=== PATIENT | female | born 1945 | race Caucasian/White ===

== ENCOUNTER → 2022-02-16 11:20 | Outpatient (CLI) | payer MEDICARE, OTHER, SELFPAY ==
--- NOTE | 2022-02-16 11:23 | DI.RAD.S_ITS ---
PROCEDURE: XR KNEE RT 3V INDICATIONS: Right knee OA TECHNIQUE: And 3 views of the knee were acquired. COMPARISON: None. FINDINGS: Bones: No fractures or dislocations. No suspicious bony lesions. There is a moderate to severe tricompartment osteoarthritic type degenerative change present with the medial compartment most severely affected. Soft tissues: A small knee joint effusion is present. No suspicious soft tissue calcifications. IMPRESSION: 1. No evidence for acute osseous abnormality involving the right knee. 2. Moderate to severe tricompartmental osteoarthritic degenerative change with the medial compartment most severely affected. 3. Small right knee joint effusion. Dictated by: Slade Escoto M.D. on 02/16/2022 at 12:40 Approved by: Slade Escoto M.D. on 02/16/2022 at 12:41
== END ==
PROVIDERS: PCP Family Medicine; Referring Provider Anesthesiology; Visit Provider Anesthesiology
DX: M17.11 Unilateral primary osteoarthritis, right knee (principal); M25.551 Pain in right hip; M25.552 Pain in left hip; G58.8 Other specified mononeuropathies; G57.11 Meralgia paresthetica, right lower limb; M25.461 Effusion, right knee
CPT/HCPCS: 73562; 99214

== ENCOUNTER 2022-03-19 12:22 | Outpatient (CLI) | payer MEDICARE, OTHER, SELFPAY ==
--- NOTE | 2022-03-19 12:23 | DI.RAD.S_ITS ---
PROCEDURE: PAIN PERIPHERAL NRV BLK OTHER INDICATIONS: SACROILIAC DISORDER COMPARISON: None. FINDINGS: Fluoroscopic spot filming was performed to verify placement of needles. Appropriate location(s) of the needle tip(s) was confirmed by injection of iodinated contrast. IMPRESSION: Fluoroscopic guidance provided. Dictated by: Gonsalo Clark M.D. on 03/19/2022 at 16:02 Approved by: Gonsalo Clark M.D. on 03/19/2022 at 16:09
[2022-03-19 12:40] VITALS: BP 145/73; PULSE 77; RESP 16; TEMP 36.4; O2SAT 97
[2022-03-19 13:12] VITALS: BP 178/110; PULSE 77; RESP 15; O2SAT 98
[2022-03-19] MEDS: IOPAMIDOL 15 ML VIAL 3 ML INJ (13:13)
[2022-03-19] MEDS: BUPIVACAINE 0.5% (PF) 30 ML VIAL 5 ML INJ (13:13)
[2022-03-19] MEDS: methylPREDNISolone acetate 80 MG/ML VIAL INJ (13:14)
[2022-03-19 13:17] VITALS: BP 160/96; PULSE 73; RESP 19; O2SAT 99
[2022-03-19 13:22] VITALS: BP 167/95; PULSE 74; RESP 18; O2SAT 99
--- NOTE | 2022-03-19 13:28 | P.PCN_ITS ---
Date/Time/Diagnoses Date of procedure: 03/19/22 Time of procedure: 13:29 Pre-procedure diagnosis: Cluneal neuralgia Post-procedure diagnosis: same Procedure Notes Procedure: Bilateral Cluneal Nerve Blocks Indications: Dgamar is referred by Dr. Griggs for treatment of cluneal neuralgia with bilateral low back and buttock pain. Physician: Bridger Elkins Total Fluoroscopy time (seconds): 13 Total sedation minutes: 0 Procedure in detail & Post-procedure care: Bilateral Cluneal Nerve Injection Chief Complaint: Low back and bilateral buttock pain Interval changes in history/medications/system review: Unchanged since last visit Allergies: Reviewed Focused Examination: Ax3 Mood and affect are normal Vital Signs: VSS ASA: 2 Consent: Following review of allergies and potential side effects/complications, including, but not necessarily limited to, infection, allergic reaction, local tissue breakdown, stroke, temporary or permanent nerve injury, paralysis, and possible , the patient indicated that they understood and agreed to proceed.? An informed consent document was signed by the patient, witnessed by a nurse and placed in the patient's chart.? Additionally, other treatment options including medications and physical therapy were reviewed with the patient. All questions were answered. Site was then marked. Position: Prone Monitoring: NIBP, Pulse oximetry, 3 lead EKG Needle used: 25 gauge, 3.5 inch spinal needle x3 Contrast: Isovue 300-M 3mL Injectate: Depomedrol 40mg with 2 mL 0.5% Bupivacaine per side (total 80 mg depo and 4 mL bupivacaine) Technique: The skin was prepped with chloraprep and then draped in a sterile fashion. Time out was performed as per protocol. Oxygen applied via NC. Midline of the spine was identified using fluoroscopy. The skin was measured 8 cm from midline and sterile eunice placed on the skin delineating the superior aspect of the iliac crest on the right. Two vincent were subsequently made 2 cm medial and 2 cm lateral for a total of 3 target sites. Skin and subcutaneous structures of the needle entry sites were then infiltrated with 5 mL of lidocaine 1%. Under AP and contralateral oblique control, the needle was guided to the superior aspect of the iliac crest in the 3 locations. Contrast was injected and the spread was consistent with appropriate needle location. There was no evidence for intravascular uptake. After negative aspiration, the above-mentioned injectate was then slowly administered and the needles withdrawn. The patient expressed no unusual discomfort or paresthesias during needle positioning or injection. This process was then repeated for the left side. EBL: less than 1 ml Complications: None Post Procedure: Patient was taken to the recovery and monitored. The patient was provided a Pain Log to continue to record the patient's response to the target- specific procedure prior to the patient's follow-up visit with the referring physician. Patient was stable upon discharge. Detailed post procedure ins tructions were provided. Patient was asked to call in the event of worsening pain, fever, weakness, numbness or bladder/bowel incontinence.
[2022-03-19 13:32] VITALS: BP 165/73; PULSE 69; RESP 18; O2SAT 99
== END 2022-03-19 13:35 | disposition home or self-care (01) ==
LOC: RAD 12:23
PROVIDERS: PCP Family Medicine; Referring Provider Anesthesiology; Visit Provider Anesthesiology
DX: G58.8 Other specified mononeuropathies (principal)
CPT/HCPCS: 64450; J1030; J1040

== ENCOUNTER → 2022-06-03 13:31 | Outpatient (CLI) | payer MEDICARE, OTHER, SELFPAY ==
--- NOTE | 2022-06-03 13:32 | DI.MRI.S_ITS ---
PROCEDURE: MR LUMBAR SPINE WO CON INDICATIONS: right lumbar radiculopathy TECHNIQUE: Noncontrast sagittal T1 spin echo and T2 fast echo, sagittal STIR, and T2 fast spin echo through the lumbar spine. In cases with scoliosis, additional coronal T2 fast spin echo may be performed. COMPARISON: None. FINDINGS: Image quality: Excellent. Alignment and Curvature: There is normal bony alignment. Bone Marrow: Marrow is of normal overall signal. No acute vertebral body compression fractures. Spinal Cord: Conus medullaris terminates at the L1-2 level. Visualized cord demonstrates normal signal and size. Paraspinous Soft Tissues: No paravertebral masses. T12-L1: Severe disc height loss and broad-based disc bulge. L1-L2: Severe disc height loss with asymmetric disc bulge on the left. Mild ligamentum flavum hypertrophy. Moderate facet arthrosis. Moderate spinal canal narrowing. L2-L3: Broad-based disc bulge. Bilateral facet arthrosis. Mild left neural foraminal narrowing. Mild spinal canal narrowing. L3-L4: Broad-based disc bulge. Ligamentum flavum hypertrophy. Facet arthrosis. Mild bilateral neural foraminal narrowing. L4-L5: Severe disc height loss. Broad-based disc bulge. Bilateral facet arthrosis. Mild right neural foraminal narrowing. L5-S1: Broad-based disc bulge. Mild facet arthrosis. IMPRESSION: Moderate to severe degenerative disc disease at all levels. Of note, there is moderate spinal canal narrowing at L1-2, with mild changes listed above. Dictated by: George Snell M.D. on 06/03/2022 at 15:27 Approved by: George Snell M.D. on 06/03/2022 at 15:33
== END ==
PROVIDERS: PCP Family Medicine; Referring Provider Anesthesiology; Visit Provider Anesthesiology
DX: M51.16 Intervertebral disc disorders with radiculopathy, lumbar region (principal); M51.17 Intervertebral disc disorders with radiculopathy, lumbosacral region; M48.061 Spinal stenosis, lumbar region without neurogenic claudication
CPT/HCPCS: 72148

== ENCOUNTER → 2022-11-22 10:56 | Outpatient (CLI) | payer MEDICARE, OTHER, SELFPAY ==
--- NOTE | 2022-11-22 10:57 | DI.MRI.S_ITS ---
PROCEDURE: MR LUMBAR SPINE WO CON INDICATIONS: 77-year-old female with worsening left leg numbness and weakness TECHNIQUE: Noncontrast sagittal T1 spin echo and T2 fast echo, sagittal STIR, and T2 fast spin echo through the lumbar spine. In cases with scoliosis, additional coronal T2 fast spin echo may be performed. COMPARISON: [facility], MR, MR LUMBAR SPINE WO CON, 06/03/2022, 14:03. FINDINGS: Image quality: Excellent. Alignment and Curvature: There is normal bony alignment. Bone Marrow: Multilevel degenerative endplate changes. Modic type 1 degenerative endplate changes noted predominantly at L4-5 Spinal Cord: Conus medullaris terminates at the L1 level. Visualized cord demonstrates normal signal and size. Paraspinous Soft Tissues: No paravertebral masses. T12-L1: Disc space narrowing and asymmetric left disc bulge results in mild central stenosis. Moderate bilateral foraminal stenosis. L1-L2: Disc space narrowing with posterior disc osteophyte complex results in mild central stenosis. Facet hypertrophy present. Moderate right and severe left foraminal stenosis L2-L3: Disc space narrowing with asymmetric right disc bulge effaces the right lateral recess. Mild central stenosis. Moderate right and left foraminal stenosis L3-L4: Disc space narrowing and circumferential disc bulge with hypertrophic facet joints and ligamentum flavum laxity combined result in mild central stenosis moderate bilateral foraminal stenosis greater on the left L4-L5: Disc space narrowing with circumferential disc bulge and hypertrophic facet joints results in mild central stenosis. High-intensity zone in the posterior annulus reflects annular fissure or tear. Moderate bilateral foraminal stenosis greater on the right L5-S1: Disc space narrowing and circumferential disc bulge present without central stenosis. Moderate right and mild left foraminal stenosis IMPRESSION: Multilevel degenerative disc disease and arthropathy results in varying degrees of central and foraminal stenosis including severe left foraminal stenosis L1-2 Approved by: Jorge Patel M.D. on 11/23/2022 at 15:22
== END ==
PROVIDERS: PCP Family Medicine; Referring Provider Anesthesiology; Visit Provider Anesthesiology
DX: M51.16 Intervertebral disc disorders with radiculopathy, lumbar region (principal); M51.17 Intervertebral disc disorders with radiculopathy, lumbosacral region; M47.26 Other spondylosis with radiculopathy, lumbar region
CPT/HCPCS: 72148

== ENCOUNTER 2022-12-09 13:27 | Outpatient (CLI) | payer MEDICARE, OTHER, SELFPAY ==
[2022-12-09] VITALS (9 sets, daily range): BP systolic 167–201; BP diastolic 65–95; PULSE 60–75; RESP 15–21; TEMP 36.4; O2SAT 97–100
--- NOTE | 2022-12-09 13:29 | DI.RAD.S_ITS ---
PROCEDURE: PAIN L INTERLAMINAR/CAUDAL INJ INDICATIONS: SPONDYLOSIS COMPARISON: [facility], MR, MR LUMBAR SPINE WO CON, 11/22/2022, 11:04. FINDINGS: Fluoroscopic spot filming was performed to verify placement of a spinal needle at the L3-L4 level, as labeled on the films. Appropriate location of the needle tip was confirmed by injection of iodinated contrast. IMPRESSION: Intraprocedural examination within normal limits. Dictated by: Fabian Sanchez M.D. on 12/10/2022 at 12:49 Approved by: Fabian Sanchez M.D. on 12/10/2022 at 12:49
[2022-12-09] MEDS: MIDAZOLAM 2 MG/2 ML VIAL 1 MG IV (14:21)
[2022-12-09] MEDS: DEXAMETHASONE 10 MG/ML VIAL INJ (14:25)
[2022-12-09] MEDS: iopamidoL 15 ML VIAL 3 ML INJ (14:25)
--- NOTE | 2022-12-09 15:26 | P.PCN_ITS ---
Date/Time/Diagnoses Date of procedure: 12/09/22 Time of procedure: 14:30 Procedure Notes Physician: Bridger Elkins Total Fluoroscopy time (seconds): 23 Total sedation minutes: 16 Procedure in detail & Post-procedure care: L3-4 Interlaminar Epidural Steroid Injection Indications: Dagmar is presenting for treatment of lumbar radiculopathy with low back and leg pain. Preoperative diagnosis: Lumbar radiculopathy Postoperative diagnosis: Same Focused Examination: Ax3 Mood and affect are normal Vital Signs: VSS ASA: 2 Consent: Following review of allergies and potential side effects/complications, including, but not necessarily limited to, infection, allergic reaction, local tissue breakdown, stroke, temporary or permanent nerve injury, paralysis, and possible , the patient indicated that they understood and agreed to pro ceed.? An informed consent document was signed by the patient, witnessed by a nurse and placed in the patient's chart.? Additionally, other treatment options including medications and physical therapy were reviewed with the patient. All questions were answered. Site was then marked. Anesthesia: After review of previous anesthetic history and IV conscious sedation, the patient was deemed safe to proceed with today's procedure with IV conscious sedation. IV sedation was accomplished with midazolam 1 mg administered by the RN after order by Dr. Elkins. Sedation was titrated to patient comfort during the course of the procedure. Patient remained responsive to all verbal commands. Position: Prone Monitoring: NIBP, Pulse oximetry, 3 lead EKG Needle used: 18 G 3.5? Tuohy Contrast: Isovue 300M Injectate: Dexamethasone 7.5 mg Technique: The skin was prepped with chloraprep and then draped in a sterile fashion. Time out was performed as per protocol. Oxygen applied via NC. Skin and subcutaneous structures of the needle entry site was then infiltrated with 3 mL of lidocaine 1%. Under AP, lateral and contralateral oblique fluoroscopic control, the Tuohy needle was guided into the L3-4 epidural space. The space was accessed with loss of resistance technique. Isovue 300M was then injected and the spread was consistent with the epidural space. There was no evidence for intravascular or intrathecal uptake. After negative aspiration, the above- mentioned injectate was then slowly administered. The needle was then attempted to be flushed with normal saline but the patient complained of right lower extremity discomfort. No further fluid was injected. The needle was withdrawn and Band-Aids applied to injection sites. EBL: less than 1 ml Complications: None Post Procedure: Patient was taken to the recovery and monitored. The patient was provided a Pain Log to continue to record the patient's response to the target-specific procedure prior to the patient's follow-up visit with the referring physician. Patient was stable upon discharge. Detailed post procedure instructions were provided. Patient was asked to call in the event of worsening pain, fever, weakness, numbness or bladder or bowel incontinence.
== END 2022-12-09 14:53 | disposition home or self-care (01) ==
PROVIDERS: PCP Family Medicine; Referring Provider Anesthesiology; Visit Provider Anesthesiology
DX: M54.16 Radiculopathy, lumbar region (principal)
CPT/HCPCS: 62323; 99152; J1100; J2250

== ENCOUNTER → 2023-01-07 11:01 | Outpatient (CLI) | payer MEDICARE, OTHER, SELFPAY ==
--- NOTE | 2023-01-07 11:02 | DI.RAD.S_ITS ---
PROCEDURE: XR LUMBAR SPINE MIN 4V INDICATIONS: Low back pain TECHNIQUE: 5 views of the lumbar spine were acquired, including bilateral oblique views. COMPARISON: [facility], MR, MR LUMBAR SPINE WO CON, 11/22/2022, 11:04. FINDINGS: Bones: 5 nonrib-bearing vertebrae are present. No vertebral body compression fractures. No suspicious bony lesions. Right convexity curvature centered at L3. Severe multilevel degenerative changes with disc height loss, endplate spurring, and facet arthropathy. 5 millimeters retrolisthesis L1 on L2. Suspect at least mild multilevel bony foraminal narrowing on oblique views. Bilateral total hip arthroplasty partially imaged. Dystrophic calcifications present about the left hip. Soft tissues: Overlying bowel gas pattern is normal. No suspicious soft tissue calcifications. IMPRESSION: Multilevel degenerative changes of the lumbar spine. Dictated by: Shaq Hines M.D. on 01/07/2023 at 15:57 Approved by: Shaq Hines M.D. on 01/07/2023 at 16:01
== END ==
PROVIDERS: PCP Family Medicine; Referring Provider Anesthesiology; Visit Provider Anesthesiology
DX: M47.816 Spondylosis without myelopathy or radiculopathy, lumbar region (principal)
CPT/HCPCS: 72110

== ENCOUNTER 2023-02-10 08:14 | Outpatient (CLI) | payer MEDICARE, OTHER, SELFPAY ==
[2023-02-10] VITALS (8 sets, daily range): BP systolic 139–186; BP diastolic 64–89; PULSE 57–71; RESP 14–18; TEMP 36.6; O2SAT 96–98
[2023-02-10] MEDS: MIDAZOLAM 2 MG/2 ML VIAL 1 MG IV (08:58)
--- NOTE | 2023-02-10 09:00 | DI.RAD.S_ITS ---
PROCEDURE: PAIN L/S FACET INJ/BLK 1ST GIANLUCA INDICATIONS: Lumbar Spondylosis COMPARISON: None. FINDINGS: Fluoroscopic spot filming was performed to verify placement of spinal needles at the L3, L4 level(s), as labeled on the films. Appropriate location(s) of the needle tip(s) was confirmed by injection of iodinated contrast. IMPRESSION: Needle placement as above. Dictated by: Amaris Hurt M.D. on 02/10/2023 at 22:32 Approved by: Amaris Hurt M.D. on 02/10/2023 at 22:32
[2023-02-10] MEDS: BUPIVACAINE 0.5% (PF) 10 ML VIAL 5 ML INJ (09:03)
[2023-02-10] MEDS: iopamidoL 15 ML VIAL 3 ML INJ (09:03)
--- NOTE | 2023-02-10 11:43 | P.PCN_ITS ---
Date/Time/Diagnoses Date of procedure: 02/10/23 Time of procedure: 09:00 Procedure Notes Physician: Bridger Elkins Total Fluoroscopy time (seconds): 28 Total sedation minutes: 14 Procedure in detail & Post-procedure care: Bilateral L3, 4, 5 Lumbar Medial Branch Blocks Indications: Dagmar is presenting for treatment of lumbar spondylosis with low back pain. Preoperative diagnosis: Lumbar spondylosis Postoperative diagnosis: Same Pre-procedure History: F Patient demonstrates today moderate to severe non- radicular back pain without neurologic deficit aggravated by hyperextension yes Back pain greater than leg pain? F yes Patient today has tenderness over the suspected joint(s) yes History of post-traumatic injury? no Hypertrophic arthropathy F yes Back pain associated with suspected motion segment instability, hypermobility or pseudoarthrosis no Pre-testing pain score (VAS): 5/10 Focused Examination: Ax3 Mood and affect are normal Vital Signs: VSS ASA: 2 Consent: Following review of allergies and potential side effects/complications, including, but not necessarily limited to, infection, allergic reaction, local tissue breakdown, stroke, temporary or permanent nerve injury, paralysis, and possible , the patient indicated that they understood and agreed to proceed.? An informed consent document was signed by the patient, witnessed by a nurse and placed in the patient's chart.? Additionally, other treatment options including medications and physical therapy were reviewed with the patient. All questions were answered. Site was then marked. Anesthesia: After review of previous anesthetic history and IV conscious sedation, the patient was deemed safe to proceed with today's procedure with IV conscious sedation. IV sedation was accomplished with midazolam 1 mg administered by the RN after order by Dr. Elkins. Sedation was titrated to patient comfort during the course of the procedure. Patient remained responsive to all verbal commands. Position: Prone Monitoring: NIBP, Pulse oximetry, 3 lead EKG Needle used: 22 ga 3.5 inch spinal needle Contrast: Isovue 300M Injectate: 0.5% bupivacaine 1 mL per site Procedure: The patient was brought into the procedure room and positioned into the prone position. Skin was prepped with a Chloraprep solution, allowed to air dry, and then draped in sterile fashion.? The right L4-5 and L5-S1 facet joints were visually identified with fluoroscopy. Lidocaine 1% was used to anesthetize the skin over each target destination with a 25ga needle. A 22 ga, 3.5 inch spinal needle was advanced to the location of the medial branch at the junction of the superior articular process and the transverse process at L4,5 and the base of the SAP of the sacrum using intermittent fluoroscopy in the AP view. Isovue 300M contrast 0.2ml was injected at each level outlining the medial borders for each level and the base of the SAP of the sacrum in the AP and lateral views. There was no evidence of vascular or intrathecal uptake. The above injectate was slowly injected at each target destination. The left L4-5 and L5-S1 facet joints were visually identified with fluoroscopy. Lidocaine 1% was used to anesthetize the skin over each target destination with a 25ga needle. A 22 ga, 3.5 inch spinal needle was advanced to the location of the medial branch at the junction of the superior articular process and the transverse process at L4,5 and the base of the SAP of the sacrum using intermittent fluoroscopy in the AP view. Isovue 300M contrast 0.2ml was injected at each level outlining the medial borders for each level and the base of the SAP of the sacrum in the AP and lateral views. There was no evidence of vascular or intrathecal uptake. The above injectate was slowly injected at each target destination. At the end of the procedure the needles were withdrawn and Band- Aids were applied for a dressing. Post Procedure: Patient was taken to the recovery and monitored. The patient was provided a Pain Log to continue to record the patient's response to the target- specific procedure prior to the patient's follow-up visit with the referring physician. Patient was stable upon discharge. Detailed post procedure instructions were provided. Patient was asked to call in the event of worsening pain, fever, weakness, numbness or bladder or bowel incontinence. Based on the medial branches blocked today, if the patient meets insurance criteria for radiofrequency, the treatment should result in the denervation of the bilateral L4-5 and L5-S1 facet joint nerves. We would expect to denervate a total of 4 facets during the radiofrequency ablation.
== END 2023-02-10 08:35 | disposition home or self-care (01) ==
LOC: RAD 08:16
PROVIDERS: PCP Family Medicine; Referring Provider Anesthesiology; Visit Provider Anesthesiology
DX: M47.816 Spondylosis without myelopathy or radiculopathy, lumbar region (principal)
CPT/HCPCS: 64493; 64494; 99152; J2250